=== PATIENT | male | born 1985 | race African-American/Black ===

== ENCOUNTER 2019-05-07 04:16 | Emergency (ER) | payer SELFPAY ==
[~2019-05-07] VITALS: Ht 193 cm; Wt 180.1 kg
[2019-05-07 07:41] LABS: Basophils # (auto) 0.1 uL; Basophils % (auto) 0.6 % (0.0-2.0); Eosinophils # (auto) 0.1 uL; Eosinophils % (auto) 0.9 % (0.0-7.0); Hematocrit 46.9 % (41.0-53.0); Hemoglobin 15.3 g/dL (13.5-17.5); Lymphocytes # (auto) 1.2 uL; Lymphocytes % (auto) 9.9 % (10.0-50.0); Mean Corpuscular Hemoglobin 27.5 pg (28.0-32.0); Mean Corpuscular Hgb Conc. 32.6 g/dL (32.0-36.0); Mean Corpuscular Volume 84.6 fL (80.0-100.0); Monocytes # (auto) 1.4 uL; Monocytes % (auto) 11.9 % (0.0-12.0); Neutrophils # (auto) 9.2 uL; Neutrophils % (auto) 76.7 % (37.0-80.0); Nucleated Red Blood Cells % 0.1 %; Platelet Count (auto) 302 10^3/uL (140-450); Red Blood Cells 5.55 10^6/uL (4.5-5.90); Red Cell Distribution Width 14.7 % (11.8-14.3)
[2019-05-07 08:00] LABS: Albumin 4.4 g/dL (3.4-5.0); BUN/Creatinine Ratio 8.5; Calcium 9.2 mg/dL (8.5-10.1); Potassium 3.5 mmol/L (3.5-5.1)
[2019-05-07 08:02] LABS: Bilirubin, Total 0.5 mg/dL (0.2-1.0); Total Protein 8.3 g/dL (6.4-8.2)
[2019-05-07 09:02] VITALS: BP 137/93
[2019-05-07] MEDS ORDERED: GLYCERIN ADULT RECTAL SUPP PR ONE ×2 (09:30)
[2019-05-07] MEDS: MAGNESIUM CITRATE SOLUTION 300 ML BTL PO ONE ×2 (09:31→10:27)
[2019-05-07] MEDS ORDERED: LACTULOSE 20Gm/30ML SOLN PO ONE (10:30)
[2019-05-16] MEDS ORDERED: LISI-646 PO (13:44)
== END 2019-05-07 10:55 | disposition home or self-care (01) ==
LOC: ER 04:16
DX: K59.00 Constipation, unspecified (principal); F17.290 Nicotine dependence, other tobacco product, uncomplicated
CPT/HCPCS: 36415; 74176; 80053; 82150; 83690; 85025

== ENCOUNTER 2019-05-13 19:22 | Inpatient (IN) | payer SELFPAY ==
[~2019-05-13] VITALS: Ht 190.5 cm; Wt 168.6 kg
[2019-05-13] MEDS ORDERED: MORPHINE SULFATE 4 MG/ML SYR/VIAL IV ONE (19:45)
[2019-05-13] MEDS ORDERED: ONDANSETRON HCL 4 MG/2 ML VIAL IV ONE (19:45)
[2019-05-13 20:18] LABS: Basophils # (auto) 0.1 uL; Basophils % (auto) 0.9 % (0.0-2.0); Eosinophils # (auto) 0.1 uL; Hematocrit 40.3 % (41.0-53.0); Hemoglobin 13.2 g/dL (13.5-17.5); Lymphocytes # (auto) 1.4 uL; Lymphocytes % (auto) 18.5 % (10.0-50.0); Mean Corpuscular Hemoglobin 27.7 pg (28.0-32.0); Mean Corpuscular Hgb Conc. 32.8 g/dL (32.0-36.0); Mean Corpuscular Volume 84.5 fL (80.0-100.0); Monocytes # (auto) 1.1 uL; Monocytes % (auto) 14.7 % (0.0-12.0); Neutrophils # (auto) 4.8 uL; Neutrophils % (auto) 63.9 % (37.0-80.0); Platelet Count (auto) 334 10^3/uL (140-450); Red Blood Cells 4.77 10^6/uL (4.5-5.90); Red Cell Distribution Width 14.7 % (11.8-14.3); White Blood Cell 7.5 10^3/uL (4.4-10.8)
[2019-05-13 20:47] LABS: Alanine Aminotransferase 23 U/L (16-61); Albumin 3.5 g/dL (3.4-5.0); Anion Gap 9 (5-15); Aspartate Aminotransferase 21 U/L (15-37); BUN/Creatinine Ratio 12.3; Blood Urea Nitrogen 16 mg/dL (7-18); Calcium 8.6 mg/dL (8.5-10.1); Carbon Dioxide 23 mmol/L (21-32); Chloride 107 mmol/L (98-107); GFR African American 81 mL/min; GFR Non-African American 67 mL/min; Glucose 129 mg/dL (74-106); Potassium 3.6 mmol/L (3.5-5.1); Sodium 139 mmol/L (136-145)
[2019-05-13 20:51] LABS: Alkaline Phosphatase 62 U/L (45-117); Bilirubin, Total 0.4 mg/dL (0.2-1.0); Total Protein 7.3 g/dL (6.4-8.2)
[2019-05-13 20:53] LABS: INR 1.06 (0.9-1.15); Partial Thromboplastin Time 30.5 sec (23.64-32.05)
[2019-05-13 23:02] LABS: Urine Bacteria NONE SEEN /hpf (None Seen); Urine Blood Negative /uL (Negative); Urine Hyaline Cast FEW /lpf (0 - 2); Urine Mucus FEW (None Seen); Urine Specific Gravity 1.031 (1.001-1.035); Urine WBC 13 /hpf (0 - 3)
[2019-05-14] MEDS ORDERED: LACTULOSE 20Gm/30ML SOLN PO ONE (01:45)
[2019-05-14] MEDS ORDERED: MORPHINE SULFATE 4 MG/ML SYR/VIAL IV ONE (02:15)
[2019-05-14] MEDS ORDERED: ONDANSETRON HCL 4 MG/2 ML VIAL IV ONE (02:15)
[2019-05-14] MEDS ORDERED: MORPHINE SULF INJ 2 MG/ML SYRINGE 1ML IV PRN (03:30)
[2019-05-14] MEDS ORDERED: ONDANSETRON HCL 4 MG/2 ML VIAL IV PRN ×2 (03:30→13:00)
[2019-05-14] MEDS ORDERED: ACETAMINOPHEN 500 MG TAB PO PRN (03:30)
[2019-05-14 06:39] LABS: BUN/Creatinine Ratio 14.3; Calcium 8.7 mg/dL (8.5-10.1); Potassium 3.8 mmol/L (3.5-5.1)
[2019-05-14 06:40] LABS: Basophils # (auto) 0.1 uL; Basophils % (auto) 0.7 % (0.0-2.0); Eosinophils # (auto) 0.2 uL; Eosinophils % (auto) 1.9 % (0.0-7.0); Hematocrit 38.7 % (41.0-53.0); Hemoglobin 12.8 g/dL (13.5-17.5); Lymphocytes # (auto) 1.6 uL; Lymphocytes % (auto) 20.3 % (10.0-50.0); Mean Corpuscular Hemoglobin 27.9 pg (28.0-32.0); Mean Corpuscular Volume 84.6 fL (80.0-100.0); Monocytes # (auto) 1.3 uL; Monocytes % (auto) 16.1 % (0.0-12.0); Neutrophils # (auto) 4.9 uL; Nucleated Red Blood Cells % 0.1 %; Platelet Count (auto) 303 10^3/uL (140-450); Red Blood Cells 4.57 10^6/uL (4.5-5.90); Red Cell Distribution Width 15.2 % (11.8-14.3); White Blood Cell 8.1 10^3/uL (4.4-10.8)
[2019-05-14] MEDS ORDERED: FAMOTIDINE INJECTION 40 MG in SODIUM CHL 0.9% 100 ML IV ONE (09:00)
--- NOTE | 2019-05-14 10:55 | NUR ---
Telemetry admit from [facility] admitted to Telemetry unit after SBAR received. Patient oriented to Juan Antonio Ying, primary RN, unit, room, bed, and unit policies regarding patient care and visiting hours. Patient now on continuous telemetry monitoring, tele box # [id number] and telemetry reading on arrival to unit is Sinus Rhythm. Patient weighed by bedscale and encouraged to call if they need something. All questions and concerns addressed, patient verbalized understanding.
[2019-05-14 12:55] VITALS: BP 146/93
[2019-05-14] MEDS ORDERED: GOLYTELY 4L KIT PO ONE (13:30)
[2019-05-14] MEDS: SODIUM CHLORIDE 0.9% 1,000 ML IV SCH ×2 (14:40→23:00)
[2019-05-14] MEDS: METOCLOPRAMIDE HCL 5MG/ml INJ 2ml VIAL IV SCH ×2 (14:40→22:58)
[2019-05-14] MEDS: LACTULOSE 20Gm/30ML SOLN PO SCH ×3 (14:40→22:00)
[2019-05-14 15:42] VITALS: BP 146/93
[2019-05-14 16:37] VITALS: BP 149/84
[2019-05-14 18:18] LABS: Hematocrit 37.6 % (41.0-53.0); Hemoglobin 12.3 g/dL (13.5-17.5)
--- NOTE | 2019-05-14 19:40 | NUR ---
Opening Shift Note Assumed care of patient, awake and alert, ambulatory. No S/S of distress/SOB. Complained of abdominal pain, explained to patient pain med is not due at this time. Instructed patient to drink Golytely to cleanse colon. Patient resistive to care and uncooperative at this time. Per patient he will try to drink Golytely despite explaining the importance of it. patient aware of Colonoscopy tomorrow. Bed in lowest position, call light within reach, will continue to monitor for changes Q1hr and PRN.
[2019-05-14 20:00] VITALS: BP 141/93
--- NOTE | 2019-05-14 21:00 | NUR ---
Patient was moved to . 237 with all personal belongings
[2019-05-14 21:54] VITALS: BP 141/93
--- NOTE | 2019-05-14 22:25 | NUR ---
Patient had a bowel movement of soft dark brown stool as described by patient. Instructed to continue drinking Golytely, per patient he will drink it later. Refused lactulose at this time despite explaining the reason for it, will continue care
[2019-05-14] MEDS: DOCUSATE SOD 100 MG CAP PO SCH (22:59)
--- NOTE | 2019-05-15 01:35 | NUR ---
Encouraged patient to continue drinking the Golytely, patient refused and stated "How can I rest and sleep if I have to go to the bathroom so often." Explained the reason why of taking the medicine in preparation to his procedure. Patient still refused at this time, will continue care
[2019-05-15] MEDS: LACTULOSE 20Gm/30ML SOLN PO SCH ×6 (01:52→21:36)
[2019-05-15 04:51] VITALS: BP 136/85
[2019-05-15] MEDS ORDERED: MAGNESIUM CITRATE SOLUTION 300 ML BTL PO ONE (06:00)
[2019-05-15] MEDS ORDERED: GOLYTELY 4L KIT PO ONE (06:00)
[2019-05-15] MEDS: METOCLOPRAMIDE HCL 5MG/ml INJ 2ml VIAL IV SCH ×3 (06:17→21:36)
--- NOTE | 2019-05-15 06:20 | NUR ---
Patient refused all laxative meds at this time despite explaining the importance of it. Patient stated, "I don't want to take those medicines for now, I need a break, it hurts my stomach." Patient had another bowel movement at this time, soft and dark brown in color. Will endorse to pinky TAY
--- NOTE | 2019-05-15 07:30 | NUR ---
OPENING SHIFT NOTE RECEIVED REPORT FROM NIGHT NURSE, ASSUMED PATIENT CARE. PATIENT IS A&OX4 WITH NO C/O PAIN OR DISTRESS AT THIS TIME. PATIENT BED IN LOW POSITION, BRAKES APPLIED, BED RAILS UP X2 AND CALL LIGHT WITHIN REACH. EDUCATED PATIENT ON POC OF CALL LIGHT USE PRN, PATIENT VERBALIZED UNDERSTANDING. NO CURRENT S/S OF DISTRESS NOTED, CONTINUING TO MONITOR Q1 HR AND PRN
--- NOTE | 2019-05-15 07:45 | NUR ---
PATIENT BOWEL MOVEMENT PATIENT HAD A LARGE, FORMED, BROWN BOWEL MOVEMENT IN HIS BED. PATIENT STATES HE WAS UNABLE TO MAKE IT TO THE RESTROOM, NURSE AND AID ASSISTED PATIENT TO SHOWER
--- NOTE | 2019-05-15 08:00 | NUR ---
SPOKE WITH GI PER DR MORALES SINCE PATIENT DID NOT COMPLETE GO LIGHTLY ORDERED PATIENT SCHEDULED COLONOSCOPY CAN NOT BE COMPLETED AND MAY NEED TO BE DONE OUTPATIENT.
[2019-05-15] MEDS ORDERED: SODIUM CHLORIDE LOCK 0 ML ONE (08:17)
[2019-05-15] MEDS ORDERED: fentaNYL CITRATE 100 MCG/2 ML VL ONE (08:18)
[2019-05-15] MEDS ORDERED: diphenhdrAMINE HCL 50 MG/1 ML VL ONE (08:18)
[2019-05-15] MEDS ORDERED: MIDAZOLAM HCL 5 MG/ML-1ML VIAL ONE (08:18)
[2019-05-15 08:56] LABS: Basophils # (auto) 0 uL; Basophils % (auto) 0.6 % (0.0-2.0); Eosinophils # (auto) 0.1 uL; Eosinophils % (auto) 1.6 % (0.0-7.0); Hematocrit 34.3 % (41.0-53.0); Hemoglobin 11.2 g/dL (13.5-17.5); Lymphocytes # (auto) 0.7 uL; Mean Corpuscular Hemoglobin 27.9 pg (28.0-32.0); Mean Corpuscular Hgb Conc. 32.8 g/dL (32.0-36.0); Mean Corpuscular Volume 85.2 fL (80.0-100.0); Monocytes # (auto) 0.7 uL; Neutrophils # (auto) 4.7 uL; Neutrophils % (auto) 75.8 % (37.0-80.0); Platelet Count (auto) 268 10^3/uL (140-450); Red Blood Cells 4.03 10^6/uL (4.5-5.90); Red Cell Distribution Width 14.9 % (11.8-14.3); White Blood Cell 6.1 10^3/uL (4.4-10.8)
[2019-05-15 09:00] VITALS: BP_SYST 140; BP_SYST 154; BP_DIAS 79; BP_DIAS 98
[2019-05-15] MEDS: SODIUM CHLORIDE 0.9% 1,000 ML IV SCH ×2 (09:00→16:00)
[2019-05-15 09:12] LABS: Potassium 3.5 mmol/L (3.5-5.1)
[2019-05-15 09:25] LABS: Albumin 3.3 g/dL (3.4-5.0); BUN/Creatinine Ratio 11.5; Bilirubin, Total 0.3 mg/dL (0.2-1.0); Calcium 8.3 mg/dL (8.5-10.1); Total Protein 6.6 g/dL (6.4-8.2)
[2019-05-15] MEDS: FAMOTIDINE (10MG/ML) 2ML VL IV SCH ×2 (10:00→21:36)
[2019-05-15] MEDS: DOCUSATE SOD 100 MG CAP PO SCH ×2 (10:00→21:36)
--- NOTE | 2019-05-15 10:00 | NUR ---
REFUSED MEDICATIONS PATIENT REFUSED ALL MEDICATIONS AT THIS TIME, STATING "I DONT WANT ANY MORE MEDICATIONS, I DONT WANT TO USE THE TOILET ANYMORE."
[2019-05-15] MEDS ORDERED: NORPTMEDS CO (12:43)
[2019-05-15 13:00] VITALS: BP 146/95
--- NOTE | 2019-05-15 14:13 | NUR ---
Received referral to see pt as he was designated as no insurance. 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
[2019-05-15] MEDS ORDERED: LISINOPRIL 10 MG TAB PO ONE (14:30)
[2019-05-15 17:00] VITALS: BP 135/91
--- NOTE | 2019-05-15 19:32 | NUR ---
Opening Shift Note Assumed care of patient, awake and alert. No S/S of distress/SOB or pain. Instructed on POC and to call for assist PRN, will continue to monitor for changes Q1hr and PRN.
[2019-05-15 20:00] VITALS: BP 121/70
--- NOTE | 2019-05-15 21:50 | NUR ---
CURRENT IV SITE LEAKING. WILL DC AND PLACE NEW IV.
--- NOTE | 2019-05-15 21:55 | NUR ---
IV insertion IV access obtained, via clean sterile technique by inserting 22 gauge catheter at right hand after 1 attempt. IV secured properly. No trauma to site. Patient tolerated well.
[2019-05-15 22:00] VITALS: BP 121/70
--- NOTE | 2019-05-15 22:00 | NUR ---
PATIENT REFUSE 2200 MEDICATIONS. PATIENT EDUCATED ON REASON/BENEFITS FOR EACH MED, STILL REFUSED. ONLY PEPCID ADMINISTERED.
[2019-05-16] MEDS: LACTULOSE 20Gm/30ML SOLN PO SCH ×4 (02:00→18:00)
--- NOTE | 2019-05-16 02:47 | NUR ---
ROUNDS PATIENT RESTING IN BED COMFORTABLY WITH EVEN AND UNLABORED RESPIRATIONS OF 20 BPM. NO S/S OF PAIN OR DISTRESS. BED AT ITS LOWEST POSITION, CALL LIGHT WITHIN REACH. WILL CONTINUE TO ROUNDS Q1H AND PRN.
--- NOTE | 2019-05-16 07:30 | NUR ---
Opening Note Received report from sale professional digital marketing RN. Patient is resting in bed, no signs or symptoms of distress noted at this time. Patient denies pain at this time. Patient is on room air, respirations even and unlabored. Patient is NPO for scheduled procedure today. Reviewed plan of care with patient, patient verbalized understanding. Bed in low and locked position, call light within reach. Will continue to monitor Q1 hour and PRN.
[2019-05-16 08:09] LABS: Hematocrit 33.3 % (41.0-53.0); Hemoglobin 10.9 g/dL (13.5-17.5)
[2019-05-16 09:04] VITALS: BP 108/56
[2019-05-16] MEDS: DOCUSATE SOD 100 MG CAP PO SCH (10:00)
[2019-05-16] MEDS: LISINOPRIL 10 MG TAB PO SCH ×2 (10:00→14:13)
[2019-05-16] MEDS: FAMOTIDINE (10MG/ML) 2ML VL IV SCH (10:00)
[2019-05-16] MEDS ORDERED: fentaNYL CITRATE 100 MCG/2 ML VL ONE (10:23)
[2019-05-16] MEDS ORDERED: SODIUM CHLORIDE LOCK 10 ML ONE (10:23)
[2019-05-16] MEDS ORDERED: diphenhdrAMINE HCL 50 MG/1 ML VL ONE (10:23)
[2019-05-16] MEDS: SODIUM CHLORIDE 0.9% 1,000 ML IV SCH (10:52)
--- NOTE | 2019-05-16 11:30 | NUR ---
family at bedside
--- NOTE | 2019-05-16 12:20 | NUR ---
Patient taken down to pre-op
[2019-05-16] MEDS ORDERED: MORPHINE SULF INJ 2 MG/ML SYRINGE 1ML IV PRN (12:30)
[2019-05-16] MEDS: MIDAZOLAM HCL 5 MG/ML-1ML VIAL ONE ×2 (12:43→12:47)
--- NOTE | 2019-05-16 12:44 | NUR ---
Nutrition Assessment Notes please see attached link for complete assessment Est. Needs ABW 128 [id number] kcal (17-20 kcal/kgBW), 128-140 gms pro (1.0-1.1 gms/kgBW). Will continue to monitor pertinent labs and reassess nutrient need prn. Addendum: 05/16/19 at [address] Amended: Links added.
--- NOTE | 2019-05-16 13:30 | NUR ---
Patient back to room Patient is s/p colonoscopy. Patient is awake, alert and oriented x4. Vitals signs 136/90, heart rate 91, oxygen saturation 96% on room air. Bed in low and locked position, call light within reach. Family at bedside. Will continue to monitor Q1 hour and PRN.
--- NOTE | 2019-05-16 13:35 | NUR ---
Dr. Almendarez at bedside Updating patient on plan of care.
[2019-05-16] MEDS ORDERED: LISI-646 PO (13:44)
--- NOTE | 2019-05-16 13:52 | NUR ---
patient went down for procedure wasn't in room for 1300 vitals
[2019-05-16 15:29] VITALS: BP 136/90
--- NOTE | 2019-05-16 16:17 | NUR ---
Spoke with Dr. Hernandez States patient is cleared for discharge from GI stand point.
--- NOTE | 2019-05-16 19:04 | NUR ---
Discharge Discharge instructions given as ordered. Patient has no primary care physician, provided with continuum of care coordinators phone number. All questions and concerns addressed. Patient verbalized understanding. Medication reconciliation form completed and copy given to patient. IV catheter removed, catheter intact, pressure dressing applied. cardiac monitor removed and sent back. Patient ambulated to private vehicle with all personal belongings, accompanied by family member. Patient refused to be taken down via wheelchair. No signs or symptoms of distress noted at this time.
== END 2019-05-16 19:04 | disposition home or self-care (01) | DRG 378 ==
LOC: EDBD 19:22 → EDUNIT# 19:22 → ER 19:22 → TELE 19:23 → TELE-EAST 05-14 10:55
PROVIDERS: ADMIT Nurse Practitioner Family; ATTEND Internal Medicine
PROC: 0DJD8ZZ Inspection of Lower Intestinal Tract, Via Natural or Artificial Opening Endoscopic (ICD-10-PCS; principal; 2019-05-16 12:39)
DX: K62.5 Hemorrhage of anus and rectum (principal); Z68.42 Body mass index [BMI] 45.0-49.9, adult; D64.9 Anemia, unspecified; E66.01 Morbid (severe) obesity due to excess calories; F17.210 Nicotine dependence, cigarettes, uncomplicated; I10 Essential (primary) hypertension; R00.0 Tachycardia, unspecified; K59.00 Constipation, unspecified; Z82.49 Family history of ischemic heart disease and other diseases of the circulatory system
CPT/HCPCS: 36415; 45378; 71045; 74176; 80048; 80053; 80061; 81001; 82270; 83036; 84443; 84484; 85014; 85018; 85025; 85379; 85610; 85730; 86850; 86900; 86901; 87086; 94761; 96365; 96375; G0378; J2250; J2405; J3490